=== PATIENT | male | born 1945 | race Caucasian/White ===

== ENCOUNTER 2017-10-07 18:15 | Emergency (ER) | payer MEDICARE, OTHER ==
--- NOTE | 2017-10-07 19:29 | RAD ---
INDICATION: Pain at left index "MC JT" COMPARISON: None. TECHNIQUE: 4 views of the left hand were obtained. FINDINGS: Overlying the subcutaneous tissue along the radial margin of the left index finger metacarpal phalangeal joint there is a punctate hyperdense focus. The adequately corticated bones are in normal alignment. No significant focal osseous abnormality or fracture is seen. Joint spaces appear maintained. IMPRESSION: Possible punctate foreign body in the subcutaneous tissue overlying the radial aspect of the left index finger metacarpal phalangeal joint without radiographic evidence of acute fracture or dislocation.
[2017-10-07] MEDS ORDERED: Lidocaine 2% PF * 5 ML VIAL INJ ONE (19:35)
[2017-10-07] MEDS ORDERED: Tetan/Diph/Pertus SYR(Tdap)* 0.5 ML SYR(BOOSTRIX) use SYR IM ONE (19:50)
[2017-10-07] MEDS ORDERED: Cephalexin CAP* 500 MG PO ONE (20:07)
[2017-10-07 20:30] VITALS: BP 139/79
--- NOTE | 2017-10-07 20:32 | UC ---
Laceration HPI - HPI Summary HPI Summary: HIT HAND WITH HAMMER ON EDGE OF METAL PIPE. LACERATION TO PALM OF HAND. 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 - History Of Current Complaint Chief Complaint: UCLaceration Stated Complaint: HAND INJURY Time Seen by Provider: 10/07/17 18:57 Hx Obtained From: Patient, Family/Joinery Setter Out Laceration Location: Hand Mechanism Of Injury: Blunt Trauma Onset/Duration: Sudden Onset, Lasting Minutes Severity: Mild Related History: Dominant Hand Right - Allergies/Home Medications Allergies/Adverse Reactions: Allergies Allergy/AdvReac Type Severity Reaction Status Date / Time Amoxicillin [From Augmentin] Allergy Rash Verified 10/07/17 18:30 Clavulanic Acid Allergy Rash Verified 10/07/17 18:30 [From Augmentin] Levofloxacin [From Levaquin] Allergy Hives Verified 10/07/17 18:30 Home Medications: Home Medications Gabapentin CAP(*) [Neurontin 100 mg CAP(*)] 1 cap PO TID 10/07/17 [History Confirmed 10/07/17] PMH/Surg Hx/FS Hx/Imm Hx Previously Healthy: Yes - Surgical History Surgical History: Yes Surgery Procedure, Year, and Place: CSP FUSION 2001. VASECTOMY. HEMORRHOIDECTOMY. POLYPS REMOVED FROM THROAT 2005, dental implants-2014 - Family History Known Family History: Negative: Blood Disorder - Social History Occupation: Retired Lives: With Family Alcohol Use: None Substance Use Type: None Smoking Status (MU): Never Smoked Tobacco - Immunization History Most Recent Influenza Vaccination: 2017 Most Recent Tetanus Shot: unknown Most Recent Pneumonia Vaccination: utd Review of Systems Constitutional: Negative Skin: Other - LACERATION LEFT HAND Eyes: Negative ENT: Negative Respiratory: Negative Cardiovascular: Negative Gastrointestinal: Negative Genitourinary: Negative Motor: Negative Neurovascular: Negative Musculoskeletal: Negative Neurological: Negative Psychological: Negative Is Patient Immunocompromised?: No All Other Systems Reviewed And Are Negative: Yes Physical Exam Triage Information Reviewed: Yes Appearance: Well-Appearing, No Pain Distress, Well-Nourished Vital Signs: Initial Vital Signs Temp 97.3 F 10/07/17 18:25 Pulse 73 10/07/17 18:25 Resp 16 10/07/17 18:25 BP 152/84 10/07/17 18:25 Pulse Ox 97 10/07/17 18:25 Vital Signs Reviewed: Yes Eye Exam: Normal ENT Exam: Normal Dental Exam: Normal Neck exam: Normal Neck: Positive: Supple, Nontender, No Lymphadenopathy Respiratory Exam: Normal Respiratory: Positive: Chest non-tender, Lungs clear, Normal breath sounds, No respiratory distress, No accessory muscle use Cardiovascular Exam: Normal Cardiovascular: Positive: RRR, No Murmur, Pulses Normal Abdominal Exam: Normal Musculoskeletal Exam: Normal Musculoskeletal: Positive: Strength Intact, ROM Intact Neurological Exam: Normal Psychological Exam: Normal Skin: Positive: Other - LACERATION LEFT HAND Laceration Repair - Laceration Repair 1 Description: Linear - CRESENT SHAPED Laceration Size After Repair: Length (cm) Type Injection: Local Anesthesia Used: 2.0% Lido Cleansing Completed Via Routine Prep: Yes Irrigation With Pressure Irrigation Device: Yes Closure Material: Sutures - 3 X 4-0 PROLENE Closure Method: Single Layer Suture Of: Skin Suture Type: Prolene Laceration Course/Dx - Differential Dx - Laceration/Wound Differental Diagnoses: Cellulitis, Joint Infection, Laceration, Tendon Laceration Provider Diagnoses: LEFT HAND PALMAR ASPECT, LACERATION WITH REPAIR. Discharge - Discharge Plan Condition: Stable Disposition: HOME Prescriptions: Cephalexin CAP* [Keflex CAP*] 500 mg PO TID #21 cap Patient Education Materials: Laceration (ED) Referrals: Fe Weinstein MD [Primary Care Provider] - Fransisco Orozco MD [Medical Doctor] - If Needed Additional Instructions: PLEASE HAVE SUTURES REMOVED IN TEN DAYS. FOLLOW UP WITH HAND SPECIALIST IF COMPLICATIONS ARISE. Images Hands: 1 - LACERATION HERE
== END 2017-10-07 20:32 | disposition home or self-care (01) ==
LOC: UCEAST 18:15
DX: S61.412A Laceration without foreign body of left hand, initial encounter (principal); W26.8XXA Contact with other sharp object(s), not elsewhere classified, initial encounter; Y93.9 Activity, unspecified; Y92.9 Unspecified place or not applicable; Z23 Encounter for immunization; Z88.1 Allergy status to other antibiotic agents
CPT/HCPCS: 12001; 90471; 90715; 99212; A9270-GY; G0463